=== PATIENT | male | born 2005 | race African-American/Black ===

== ENCOUNTER 2024-07-21 08:15 | Emergency (ER) | payer OTHER, SELFPAY ==
[2024-07-21 08:24] VITALS: BP 148/79; PULSE 100; RESP 20; TEMP 37.1; O2SAT 97
--- NOTE | 2024-07-21 08:26 | ED.SKABFB ---
HPI - Skin/Abscess/Foreign Bdy General Chief complaint: Skin/Abscess/Foreign Body Stated complaint: Right Hand Thumb Pain Time Seen by Provider: 07/21/24 08:26 Source: patient, RN notes reviewed and old records reviewed Mode of arrival: ambulatory Limitations: no limitations History of Present Illness HPI narrative: Patient presents with complaints of right thumb pain and swelling at the nail bed. He reports that this originated from a hangnail couple of weeks ago. He denies any active drainage. He denies any fever, chills sweats. He retains active range of motion. He denies any injury or trauma Related Data Home Medications Medication Instructions Recorded Confirmed venlafaxine 150 mg 150 mg PO DAILY 07/21/24 07/21/24 capsule,extended release 24 hr Allergies Allergy/AdvReac Type Severity Reaction Status Date / Time No Known Allergies Allergy Mild Unverified 08/21/09 08:59 Review of Systems Review of Systems: All systems reviewed & are unremarkable except as noted in HPI and below Constitutional: Constitutional: Reports no additional constitutional complaints ENT: Reports system reviewed and no additional complaints, except as documented Cardiovascular: Cardiovascular: Reports no additional cardiovascular complaints Respiratory: Respiratory: Reports no additional respiratory complaints Gastrointestinal: Gastrointestinal: Reports no additional gastrointestinal complaints Integumentary/Breasts: Skin/Breast: Reports system reviewed and no additional complaints, except as docu and Reports as per HPI Exam Const: General: cooperative, no acute distress, alert and awake Orientation/consciousness: oriented to person, oriented to place and oriented to time HENMT: Head: normal to inspection Resp: Effort & Inspection: normal respiratory effort and able to speak in complete sentences Auscultation: clear to auscultation bilaterally, no crackles, no rales, no rhonchi and no wheezes Cardio: Palpation: normal PMI Rate: regular rate Rhythm: regular rhythm Heart sounds: S1 normal heart sound present and S2 normal heart sound present Neuro: General: oriented to person, oriented to place and oriented to time Cranial nerves: Yes CN's II-XII intact bilaterally Extrem: Right upper extremity: Extremity exam: right hand normal capillary refill, tenderness of the thumb at the nailbed and swelling of the thumb at the nailbed Psych: Appearance: grossly normal Thought process: Normal thought process present Insight: Good insight present (Psych) Judgement: Good judgement present (Psych) Course Course Level of Care: Express Care Visit Vital Signs Vital signs: Vital Signs Temperature 98.8 F 07/21/24 08:24 Pulse Rate 100 07/21/24 08:24 Respiratory Rate 20 07/21/24 08:24 Blood Pressure 148/79 H 07/21/24 08:24 Pulse Oximetry 97 07/21/24 08:24 Oxygen Delivery Room Air 07/21/24 08:24 Temperature 98.8 F 07/21/24 08:24 Pulse Rate 100 07/21/24 08:24 Respiratory Rate 20 07/21/24 08:24 Blood Pressure 148/79 H 07/21/24 08:24 Pulse Oximetry 97 07/21/24 08:24 Oxygen Delivery Room Air 07/21/24 08:24 Procedures Abscess I/D hand: Date of Incision: 07/21/24 Time of Incision: 08:35 Local Anesthetic: none Technique: needle aspiration Amount of fluid expressed (mL): 3 Irrigation: No Packing used?: none I&D Results: Pus MDM - Skin/Abscess/Foreign Bdy MDM Narrative Medical decision making narrative: Paronychia right thumb easily drained with an 18 gauge needle. Antibiotics prescribed. Recheck of blood pressure 104/52. Patient nontoxic appearing, stable for discharge home on p.o. antibiotics. Follow with primary care provider. Emergency department for new or worse symptoms. Discharge instructions reviewed with patient, as well as provided in writing per nursing staff. The instructions also include specific and strict return/GO
[2024-07-21 08:42] VITALS: BP 104/52
== END 2024-07-21 08:50 | disposition home or self-care (01) ==
PROVIDERS: Emergency Provider Nurse Practitioner Family; PCP Pediatrics
DX: L03.011 Cellulitis of right finger (principal)
CPT/HCPCS: 10160; 99203; G0463